=== PATIENT | male | born 1980 | race Caucasian/White ===

== ENCOUNTER 2019-06-07 13:09 | Inpatient (IN) ==
[2019-06-07] MEDS ORDERED: methylPREDNISolone 125 MG/2 ML VIAL IVP ONE (14:13)
[2019-06-07] MEDS ORDERED: Ipratropium/Albuterol Neb 3 ML IH ONE (14:13)
[2019-06-07 14:53] LABS: Basophils # 0.1 K/mcL (0.0-0.2); Basophils % 0.9 %; Eosinophils # 0.1 K/mcL (0.0-0.6); Eosinophils % 1.5 %; Hematocrit 43.9 % (37.5-50.1); Hemoglobin 13.8 g/dL (12.9-16.9); Lymphocytes # 0.8 K/mcL (0.6-4.6); Lymphocytes % 10.2 %; Mean Corpuscular HGB Conc 31.4 g/dL (31.6-35.5); Mean Corpuscular Hemoglobin 27.1 pg (28.0-33.3); Mean Corpuscular Volume 86.1 fL (83.0-100.0); Mean Platelet Volume 10.9 fL (9.4-12.4); Monocytes # 0.9 K/mcL (0.0-1.3); Monocytes % 10.6 %; Neutrophils # 6.2 K/mcL (1.6-8.9); Platelet Count 135 K/mcL (140-400); Red Cell Distribution Width 24.2 % (11.5-14.5); Segmented Neutrophils % 76.8 %; White Blood Count 8.1 K/mcL (4.3-11.1)
[2019-06-07 15:13] LABS: BUN/Creatinine Ratio 20 (6-26); Blood Urea Nitrogen 31 mg/dL (6-20); Calcium 9.5 mg/dL (8.6-10.3); Carbon Dioxide 25 mEq/L (23-29); Chloride 102 mEq/L (98-107); Glucose 74 mg/dL (70-105); Osmolality,Calculated 295 (280-300); Sodium 140 mEq/L (136-145); Troponin I 0.04 ng/mL (< 0.04); eGFR For African Americans > 60 (> 60); eGFR For Non-African Americans 51 (> 60)
[2019-06-07 15:37] LABS: Anisocytosis 1+ (Not Present); Microcytosis Present (Not Present); Platelet Estimate Normal (Normal); Polychromasia 1+ (Not Present); Toxic Granulation Present (Not Present)
[2019-06-07] MEDS ORDERED: Methocarbamol 500 MG TABLET PO PRN (17:17)
[2019-06-07] MEDS ORDERED: Ondansetron ODT 4 MG TAB.RAPDIS SL PRN (17:22)
[2019-06-07] MEDS ORDERED: Naloxone 0.4 MG/ML INJ IVP PRN (17:22)
[2019-06-07] MEDS: Ipratropium/Albuterol Neb 3 ML IH SCH ×2 (18:00→22:42)
[2019-06-07] MEDS ORDERED: Furosemide 40 MG/4 ML VIAL IVP ONE (18:37)
[2019-06-07] MEDS: Torsemide 20 MG TABLET PO SCH (20:11)
[2019-06-07] MEDS: levETIRAcetam 250 MG TABLET PO SCH (20:11)
[2019-06-07] MEDS: Gabapentin 100 MG CAPSULE PO SCH (20:11)
[2019-06-07 21:13] LABS: Bilirubin,Urine Negative (Negative); Blood,Urine Negative (Negative); Clarity,Urine Clear (Clear); Color,Urine Yellow (Yellow); Glucose,Urine (UA) Normal (Normal); Ketones,Urine Negative (Negative); Specific Gravity,Urine 1.015 (1.010-1.025)
[2019-06-07 21:14] LABS: Leukocyte Esterase,Urine Negative (Negative); Nitrite,Urine Negative (Negative); PH,Urine 5.5 pH Units (5.0-8.0); Protein,Urine Trace mg/dL (Neg-Trace); Urobilinogen,Urine Normal (Normal)
[2019-06-07] MEDS: Azelastine 0.1% Nasal Spray 30 ML BOTTLE NS PRN (21:59)
[2019-06-07] MEDS: traZODone 50 MG TABLET PO PRN (21:59)
[2019-06-08] MEDS: hydrALAZINE 10 MG TABLET PO SCH ×4 (01:53→22:33)
[2019-06-08] MEDS: MethylPREDNISolone 40 MG/ML VIAL IVP SCH ×5 (01:53→22:33)
[2019-06-08] MEDS: Ipratropium/Albuterol Neb 3 ML IH SCH ×4 (04:50→22:37)
[2019-06-08] MEDS: Levothyroxine 25 MCG TABLET PO SCH (05:21)
[2019-06-08 08:05] LABS: Hemoglobin 13.1 g/dL (12.9-16.9); Mean Corpuscular Hemoglobin 27.2 pg (28.0-33.3); Mean Corpuscular Volume 85.1 fL (83.0-100.0); Mean Platelet Volume 11.3 fL (9.4-12.4); Platelet Count 100 K/mcL (140-400); Red Blood Count 4.82 M/mcL (4.19-5.50); Red Cell Distribution Width 23.7 % (11.5-14.5); White Blood Count 5.4 K/mcL (4.3-11.1)
[2019-06-08 08:27] LABS: Alanine Aminotransferase 11 Units/L (7-52); Albumin 4.3 g/dL (3.5-5.7); Albumin/Globulin Ratio 1.7 (1.1-2.2); Alkaline Phosphatase 121 Units/L (34-104); Aspartate Amino Transferase 21 Units/L (13-39); BUN/Creatinine Ratio 27 (6-26); Bilirubin,Total 1.2 mg/dL (0.3-1.0); Blood Urea Nitrogen 42 mg/dL (6-20); Carbon Dioxide 23 mEq/L (23-29); Chloride 101 mEq/L (98-107); Globulin 2.5 g/dL (2.4-3.5); Glucose 195 mg/dL (70-105); Osmolality,Calculated 298 (280-300); Potassium 3.9 mEq/L (3.5-5.1); Sodium 136 mEq/L (136-145); Total Protein 6.8 g/dL (6.4-8.9); eGFR For African Americans > 60 (> 60); eGFR For Non-African Americans 50 (> 60)
[2019-06-08] MEDS: Cyanocobalamin (B-12) 1,000 MCG TABLET PO SCH (08:34)
[2019-06-08] MEDS: Loratadine 10 MG TABLET PO SCH (08:34)
[2019-06-08] MEDS: Spironolactone 25 MG TABLET PO SCH (08:34)
[2019-06-08] MEDS: Torsemide 20 MG TABLET PO SCH ×2 (08:34→15:52)
[2019-06-08] MEDS: Gabapentin 100 MG CAPSULE PO SCH ×3 (08:34→22:33)
[2019-06-08] MEDS: Magnesium Oxide 400 MG TABLET PO SCH (08:34)
[2019-06-08] MEDS: Fluconazole 100 MG TABLET PO SCH (08:34)
[2019-06-08] MEDS: Folic Acid 1 MG TABLET PO SCH (08:34)
[2019-06-08] MEDS: levETIRAcetam 250 MG TABLET PO SCH ×2 (08:35→22:33)
[2019-06-08] MEDS ORDERED: Dextrose Gel 15 GM/37.5 ML TUBE PO PRN ×2 (10:06)
[2019-06-08] MEDS ORDERED: D5% in Water 1,000 ML IVC PRN (10:06)
[2019-06-08] MEDS ORDERED: *HR* Dextrose 50 % in Water (Syg) 50 ML SYRINGE IVP PRN (10:06)
[2019-06-08] MEDS: Insulin LISPRO 300 UNITS/3 ML VIAL SQ SCH ×4 (12:01→22:15)
[2019-06-08 13:48] LABS: Estimated Average Glucose 111 mg/dl
[2019-06-08 14:33] LABS: Adenovirus Not Detected (Not Detect); Bordetella Pertussis Not Detected (Not Detect); Coronavirus 229E Not Detected (Not Detect); Coronavirus HKU1 Not Detected (Not Detect); Coronavirus NL63 Not Detected (Not Detect); Coronavirus OC43 Not Detected (Not Detect); Human Metapneumovirus Not Detected (Not Detect); Human Rhinovirus/Enterovirus DETECTED (Not Detect); Influenza A Subtype 2009 H1 Not Detected (Not Detect); Influenza B Not Detected (Not Detect); Parainfluenza Virus 1 Not Detected (Not Detect); Parainfluenza Virus 2 Not Detected (Not Detect); Parainfluenza Virus 3 Not Detected (Not Detect); Parainfluenza Virus 4 Not Detected (Not Detect); Respiratory Syncytial Virus Not Detected (Not Detect)
[2019-06-08 14:34] LABS: Chlamydophila pneumoniae Not Detected (Not Detect); Mycoplasma pneumoniae Not Detected (Not Detect)
[2019-06-08 14:34] LABS: Adenovirus F 40/41 PCR Not detected (Not detect); Astrovirus PCR Not detected (Not detect); C.difficile Toxin A/B Gene PCR Not detected (Not detect); Campylobacter by PCR Not detected (Not detect); Cryptosporidium by PCR Not detected (Not detect); Cyclospora cayetanensis PCR Not detected (Not detect); E. coli O157 by PCR Not detected (Not detect); Entamoeba histolytica PCR Not detected (Not detect); Enteroaggregative E.coli(EAEC) Not detected (Not detect); Enteropathogenic E.coli(EPEC) Not detected (Not detect); Enterotoxigenic E.coli (ETEC) Not detected (Not detect); Giardia lamblia PCR Not detected (Not detect); Norovirus GI/GII PCR Not detected (Not detect); Plesiomonas shigelloides PCR Not detected (Not detect); Rotavirus A PCR Not detected (Not detect); Salmonella PCR Not detected (Not detect); Sapovirus PCR Not detected (Not detect); Shig/EnteroinvasiveE coli EIEC Not detected (Not detect); Shigalike tox-prod E coli STEC Not detected (Not detect); Vibrio PCR Not detected (Not detect); Vibrio cholerae PCR Not detected (Not detect); Yersinia enterocolitica PCR Not detected (Not detect)
[2019-06-08] MEDS: Azelastine 0.1% Nasal Spray 30 ML BOTTLE NS PRN (22:33)
[2019-06-08] MEDS: traZODone 50 MG TABLET PO PRN (22:37)
[2019-06-09] MEDS: Ipratropium/Albuterol Neb 3 ML IH SCH ×4 (04:30→22:22)
[2019-06-09] MEDS: Levothyroxine 25 MCG TABLET PO SCH (05:01)
[2019-06-09] MEDS: MethylPREDNISolone 40 MG/ML VIAL IVP SCH (05:01)
[2019-06-09 06:22] LABS: Hematocrit 41.5 % (37.5-50.1); Hemoglobin 13.2 g/dL (12.9-16.9); Mean Corpuscular HGB Conc 31.8 g/dL (31.6-35.5); Mean Corpuscular Hemoglobin 27.3 pg (28.0-33.3); Mean Corpuscular Volume 85.9 fL (83.0-100.0); Mean Platelet Volume 11.2 fL (9.4-12.4); Platelet Count 104 K/mcL (140-400); Red Blood Count 4.83 M/mcL (4.19-5.50); Red Cell Distribution Width 24.1 % (11.5-14.5); White Blood Count 11.1 K/mcL (4.3-11.1)
[2019-06-09 06:50] LABS: Calcium 9.1 mg/dL (8.6-10.3); Potassium 4.4 mEq/L (3.5-5.1)
[2019-06-09] MEDS: Insulin LISPRO 300 UNITS/3 ML VIAL SQ SCH ×4 (08:56→21:40)
[2019-06-09] MEDS: Spironolactone 25 MG TABLET PO SCH (08:57)
[2019-06-09] MEDS: Fluconazole 100 MG TABLET PO SCH (08:57)
[2019-06-09] MEDS: Magnesium Oxide 400 MG TABLET PO SCH (08:57)
[2019-06-09] MEDS: levETIRAcetam 250 MG TABLET PO SCH ×2 (08:57→21:17)
[2019-06-09] MEDS: Loratadine 10 MG TABLET PO SCH (08:57)
[2019-06-09] MEDS: Folic Acid 1 MG TABLET PO SCH (08:57)
[2019-06-09] MEDS: Cyanocobalamin (B-12) 1,000 MCG TABLET PO SCH (08:57)
[2019-06-09] MEDS: Gabapentin 100 MG CAPSULE PO SCH ×3 (08:58→21:17)
[2019-06-09] MEDS: hydrALAZINE 10 MG TABLET PO SCH ×2 (08:58→17:08)
[2019-06-09] MEDS ORDERED: *HR* Dextrose 50 % in Water (Vial) 50 ML VIAL IVP PRN (17:15)
[2019-06-09] MEDS ORDERED: MethylPREDNISolone 40 MG/ML VIAL IVP SCH (18:00)
[2019-06-09] MEDS: Azelastine 0.1% Nasal Spray 30 ML BOTTLE NS PRN (21:30)
[2019-06-09] MEDS ORDERED: Acetaminophen 325 MG TABLET PO PRN (21:33)
[2019-06-10] MEDS: hydrALAZINE 10 MG TABLET PO SCH ×2 (00:20→07:52)
[2019-06-10] MEDS: Ipratropium/Albuterol Neb 3 ML IH SCH ×2 (04:30→10:28)
[2019-06-10] MEDS: Levothyroxine 25 MCG TABLET PO SCH (05:53)
[2019-06-10 06:54] LABS: Hematocrit 42.2 % (37.5-50.1); Mean Corpuscular HGB Conc 30.8 g/dL (31.6-35.5); Mean Corpuscular Volume 87.7 fL (83.0-100.0); Mean Platelet Volume 11.3 fL (9.4-12.4); Platelet Count 100 K/mcL (140-400); Red Blood Count 4.81 M/mcL (4.19-5.50); Red Cell Distribution Width 24.3 % (11.5-14.5); White Blood Count 12.3 K/mcL (4.3-11.1)
[2019-06-10 07:10] LABS: Calcium 8.8 mg/dL (8.6-10.3); Potassium 4.5 mEq/L (3.5-5.1)
[2019-06-10] MEDS: Torsemide 20 MG TABLET PO SCH (07:51)
[2019-06-10] MEDS: Gabapentin 100 MG CAPSULE PO SCH (07:52)
[2019-06-10] MEDS: Cyanocobalamin (B-12) 1,000 MCG TABLET PO SCH (07:52)
[2019-06-10] MEDS: Folic Acid 1 MG TABLET PO SCH (07:52)
[2019-06-10] MEDS: Loratadine 10 MG TABLET PO SCH (07:52)
[2019-06-10] MEDS: Fluconazole 100 MG TABLET PO SCH (07:52)
[2019-06-10] MEDS: Magnesium Oxide 400 MG TABLET PO SCH (07:52)
[2019-06-10] MEDS: levETIRAcetam 250 MG TABLET PO SCH (07:52)
[2019-06-10] MEDS: Spironolactone 25 MG TABLET PO SCH (07:53)
[2019-06-10] MEDS: Insulin LISPRO 300 UNITS/3 ML VIAL SQ SCH ×2 (08:03→13:14)
[2019-06-10 10:35] VITALS: BP 112/58
== END 2019-06-10 13:50 | disposition home or self-care (01) | DRG 141 ==
LOC: EMEROOPIK 13:09 → INPPIK 15:58
PROVIDERS: ADMIT Family Medicine; ATTEND Family Medicine

== ENCOUNTER 2019-10-30 23:55 | Observation (INO) ==
[2019-10-31] MEDS ORDERED: methylPREDNISolone 125 MG/2 ML VIAL IVP ONE (00:18)
[2019-10-31] MEDS ORDERED: Ipratropium/Albuterol Neb 3 ML IH ONE ×2 (00:18→01:43)
[2019-10-31] MEDS ORDERED: Furosemide 40 MG/4 ML VIAL IVP ONE (00:18)
[2019-10-31 00:45] LABS: Basophils # 0.1 K/mcL (0.0-0.2); Basophils % 0.8 %; Eosinophils # 0.2 K/mcL (0.0-0.6); Eosinophils % 3.7 %; Hematocrit 48.4 % (37.5-50.1); Hemoglobin 16.4 g/dL (12.9-16.9); Immature Granulocytes % 0.2 % (0-4); Lymphocytes # 1.1 K/mcL (0.6-4.6); Lymphocytes % 18.4 %; Mean Corpuscular HGB Conc 33.9 g/dL (31.6-35.5); Mean Corpuscular Hemoglobin 30.5 pg (28.0-33.3); Mean Platelet Volume 13.4 fL (9.4-12.4); Monocytes # 0.6 K/mcL (0.0-1.3); Monocytes % 10.7 %; Red Blood Count 5.38 M/mcL (4.19-5.50); Red Cell Distribution Width 16.4 % (11.5-14.5); Segmented Neutrophils % 66.2 %
[2019-10-31 00:49] LABS: Platelet Count 98 K/mcL (140-400)
[2019-10-31 00:54] LABS: INR 1.5; Prothrombin Time 16.7 Seconds (9.4-12.1)
[2019-10-31 00:56] LABS: Alanine Aminotransferase 8 Units/L (7-52); Albumin 4.4 g/dL (3.5-5.7); Albumin/Globulin Ratio 1.6 (1.1-2.2); Alkaline Phosphatase 148 Units/L (34-104); Aspartate Amino Transferase 20 Units/L (13-39); BUN/Creatinine Ratio 15 (6-26); Bilirubin,Total 1.3 mg/dL (0.3-1.0); Blood Urea Nitrogen 22 mg/dL (6-20); Calcium 8.8 mg/dL (8.6-10.3); Carbon Dioxide 26 mEq/L (23-29); Chloride 100 mEq/L (98-107); Globulin 2.7 g/dL (2.4-3.5); Glucose 78 mg/dL (70-105); Magnesium 1.8 mg/dL (1.6-2.6); Osmolality,Calculated 284 (280-300); Potassium 4.2 mEq/L (3.5-5.1); Sodium 136 mEq/L (136-145); Total Protein 7.1 g/dL (6.4-8.9); Troponin I 0.03 ng/mL (< 0.04); eGFR For African Americans > 60 (> 60); eGFR For Non-African Americans 53 (> 60)
[2019-10-31 01:19] LABS: Amphetamine Screen,Urine Negative ng/mL (Cutoff=1000); Barbiturate Screen,Urine Negative ng/mL (Cutoff=200); Benzodiazepines Screen,Urine Negative ng/mL (Cutoff=200); Cannabinoid Screen,Urine Positive ng/mL (Cutoff = 50); Cocaine Screen,Urine Positive ng/mL (Cutoff= 300); Opiate Screen,Urine Negative ng/mL (Cutoff=300); Phencyclidine Screen,Urine Negative ng/mL (Cutoff=25)
[2019-10-31] MEDS ORDERED: Benzonatate 100 MG CAPSULE PO STA (01:43)
[2019-10-31 04:13] LABS: Adenovirus Not Detected (Not Detect); Bordetella Pertussis Not Detected (Not Detect); Chlamydophila pneumoniae Not Detected (Not Detect); Coronavirus 229E Not Detected (Not Detect); Coronavirus HKU1 Not Detected (Not Detect); Coronavirus NL63 Not Detected (Not Detect); Coronavirus OC43 Not Detected (Not Detect); Human Metapneumovirus Not Detected (Not Detect); Human Rhinovirus/Enterovirus DETECTED (Not Detect); Influenza A Subtype 2009 H1 Not Detected (Not Detect); Influenza B Not Detected (Not Detect); Mycoplasma pneumoniae Not Detected (Not Detect); Parainfluenza Virus 1 Not Detected (Not Detect); Parainfluenza Virus 2 Not Detected (Not Detect); Parainfluenza Virus 3 Not Detected (Not Detect); Parainfluenza Virus 4 Not Detected (Not Detect); Respiratory Syncytial Virus Not Detected (Not Detect)
[2019-10-31] MEDS ORDERED: Naloxone 0.4 MG/ML INJ IVP PRN (05:31)
[2019-10-31] MEDS ORDERED: Azelastine 0.1% Nasal Spray 30 ML BOTTLE NS PRN (05:31)
[2019-10-31] MEDS ORDERED: traZODone 50 MG TABLET PO PRN (05:31)
[2019-10-31] MEDS: Levothyroxine 25 MCG TABLET PO SCH (06:12)
[2019-10-31] MEDS: hydrALAZINE 10 MG TABLET PO SCH ×3 (06:12→21:40)
[2019-10-31] MEDS ORDERED: Furosemide 80 MG in 0.9 % Sodium Chloride 50 ML IV SCH (09:00)
[2019-10-31] MEDS ORDERED: Torsemide 20 MG TABLET PO SCH (09:00)
[2019-10-31] MEDS: Spironolactone 25 MG TABLET PO SCH (09:23)
[2019-10-31] MEDS: Folic Acid 1 MG TABLET PO SCH (09:23)
[2019-10-31] MEDS: Gabapentin 100 MG CAPSULE PO SCH ×3 (09:23→21:40)
[2019-10-31] MEDS: Cyanocobalamin (B-12) 1,000 MCG TABLET PO SCH (09:23)
[2019-10-31] MEDS: allopurinoL 100 MG TABLET PO SCH (09:23)
[2019-10-31] MEDS: Loratadine 10 MG TABLET PO SCH (09:23)
[2019-10-31] MEDS: Budesonide/Formoterol 160/4.5 1 PUFF INH IH SCH ×2 (09:24→20:21)
[2019-10-31] MEDS: Furosemide 40 MG/4 ML VIAL IVP SCH ×2 (09:24→16:34)
[2019-10-31] MEDS: Magnesium Oxide 400 MG TABLET PO SCH (09:24)
[2019-10-31] MEDS: levETIRAcetam 250 MG TABLET PO SCH ×2 (09:24→21:40)
[2019-10-31] MEDS ORDERED: Perflutren Lipid Microsphere 1.3 ML in 0.9 % Sodium Chloride 8.7 ML IVP PRN (11:42)
[2019-10-31] MEDS ORDERED: *HR* LORazepam 2 MG/ML VIAL IVP ONE (13:46)
[2019-10-31 21:10] LABS: Acinetobacter baumannii by PCR Not Detected (Not Detect); Candida albicans by PCR Not Detected (Not Detect); Candida glabrata by PCR Not Detected (Not Detect); Candida krusei by PCR Not Detected (Not Detect); Candida parapsilosis by PCR Not Detected (Not Detect); Candida tropicalis by PCR Not Detected (Not Detect); Enterobacter cloacae Cmplx PCR Not Detected (Not Detect); Enterobacteriaceae by PCR Not Detected (Not Detect); Enterococcus by PCR Not Detected (Not Detect); Escherichia coli by PCR Not Detected (Not Detect); Klebsiella oxytoca by PCR Not Detected (Not Detect); Klebsiella pneumoniae by PCR Not Detected (Not Detect); Proteus by PCR Not Detected (Not Detect); Pseudomonas aeruginosa by PCR Not Detected (Not Detect); Serratia marcescens by PCR Not Detected (Not Detect); Staphylococcus aureus by PCR Not Detected (Not Detect); Staphylococcus by PCR Not Detected (Not Detect); Streptococcus agalactiae(B)PCR Not Detected (Not Detect); Streptococcus by PCR Not Detected (Not Detect); Streptococcus pneumoniae PCR Not Detected (Not Detect); Streptococcus pyogenes (A) PCR Not Detected (Not Detect)
[2019-10-31] MEDS ORDERED: cefTRIAXone 1,000 MG in Water for inj. (sterile) 10 ML IVP SCH (22:00)
[2019-10-31] MEDS ORDERED: Albuterol 2.5 MG/3 ML NEBULIZER IH PRN (23:30)
[2019-10-31] MEDS: Piperacillin/Tazobactam 3.375 GM in 0.9 % Sodium Chloride Mini Bag 100 ML IVPB SCH (23:58)
[2019-11-01] MEDS ORDERED: Acetaminophen 325 MG TABLET PO PRN (01:30)
[2019-11-01 06:53] VITALS: BP 91/52
[2019-11-01] MEDS: Levothyroxine 25 MCG TABLET PO SCH (06:55)
[2019-11-01] MEDS: hydrALAZINE 10 MG TABLET PO SCH (06:55)
[2019-11-01] MEDS: Cyanocobalamin (B-12) 1,000 MCG TABLET PO SCH (08:44)
[2019-11-01] MEDS: Magnesium Oxide 400 MG TABLET PO SCH (08:44)
[2019-11-01] MEDS: Folic Acid 1 MG TABLET PO SCH (08:44)
[2019-11-01] MEDS: Gabapentin 100 MG CAPSULE PO SCH (08:45)
[2019-11-01] MEDS: Furosemide 40 MG/4 ML VIAL IVP SCH (08:45)
[2019-11-01] MEDS: allopurinoL 100 MG TABLET PO SCH (08:45)
[2019-11-01] MEDS: Spironolactone 25 MG TABLET PO SCH (08:45)
[2019-11-01] MEDS: levETIRAcetam 250 MG TABLET PO SCH (08:45)
[2019-11-01] MEDS: Loratadine 10 MG TABLET PO SCH (08:45)
[2019-11-01 08:46] LABS: Basophils % 0.1 %; Hematocrit 45.5 % (37.5-50.1); Hemoglobin 15.5 g/dL (12.9-16.9); Immature Granulocytes % 0.4 % (0-4); Lymphocytes # 0.5 K/mcL (0.6-4.6); Lymphocytes % 4.8 %; Mean Corpuscular HGB Conc 34.1 g/dL (31.6-35.5); Mean Corpuscular Hemoglobin 30.8 pg (28.0-33.3); Mean Corpuscular Volume 90.5 fL (83.0-100.0); Mean Platelet Volume 12.8 fL (9.4-12.4); Monocytes # 0.7 K/mcL (0.0-1.3); Neutrophils # 9.7 K/mcL (1.6-8.9); Red Blood Count 5.03 M/mcL (4.19-5.50); Red Cell Distribution Width 16.5 % (11.5-14.5); Segmented Neutrophils % 88.7 %; White Blood Count 10.9 K/mcL (4.3-11.1)
[2019-11-01] MEDS: Piperacillin/Tazobactam 3.375 GM in 0.9 % Sodium Chloride Mini Bag 100 ML IVPB SCH (08:46)
[2019-11-01 08:51] LABS: Platelet Count 90 K/mcL (140-400)
[2019-11-01 09:03] LABS: Albumin 4.3 g/dL (3.5-5.7); Albumin/Globulin Ratio 1.7 (1.1-2.2); Bilirubin,Total 0.9 mg/dL (0.3-1.0); Calcium 9.2 mg/dL (8.6-10.3); Globulin 2.6 g/dL (2.4-3.5); Magnesium 2.2 mg/dL (1.6-2.6); Potassium 4.8 mEq/L (3.5-5.1); Total Protein 6.9 g/dL (6.4-8.9)
[2019-11-01] MEDS: Budesonide/Formoterol 160/4.5 1 PUFF INH IH SCH (10:30)
== END 2019-11-01 13:58 | disposition short-term general hospital (02) ==
LOC: EMEROOPIK 23:55 → INPPIK 23:55
PROVIDERS: ADMIT Family Medicine; ATTEND Family Medicine